=== PATIENT | male | born 1960 | race Two or more races ===

== ENCOUNTER → 2022-05-27 | Emergency (ER) | payer BC ==
[~2022-05-27] VITALS: Ht 160 cm; Wt 86.2 kg
[~2022-05-27] MED LIST: IBUPROFEN 600 MG TABLET ONE; IBUPROFEN 600 MG TABLET PO ONE
--- NOTE | 2022-05-27 16:56 | NUR ---
Patient discharged to home in stable condition. Written and verbal after care instructions given. Patient verbalizes understanding of instruction.
[2022-05-27 16:58] VITALS: BP 156/86
== END | disposition home or self-care (01) ==
LOC: ER 14:30
DX: R07.81 Pleurodynia (principal); I10 Essential (primary) hypertension; E11.9 Type 2 diabetes mellitus without complications
CPT/HCPCS: 71045-TC